=== PATIENT | female | born 1955 | race Hispanic/Latino ===

== ENCOUNTER 2022-02-12 14:32 | Outpatient (CLI) | payer OTHER | END 2022-02-12 14:33 | disposition home or self-care (01) | LOC: BICULT 14:32 | PROVIDERS: ATTEND Nurse Practitioner Family | DX: N64.89 Other specified disorders of breast (principal) | CPT/HCPCS: 76642; 77065; G0279 ==

== ENCOUNTER 2022-05-18 14:43 | Outpatient (CLI) | payer OTHER ==
[2022-05-18 16:06] LABS: #Eosinphils 0.2 10x3/uL (0.0-0.5); #Monocytes 0.5 10x3/uL (0.0-1.1); #Neutrophils 6.1 10x3/uL (1.5-8.4); %Basophils 0.1 % (0.0-2.0); %Eosinophils 2.5 % (0.0-6.0); %Monocytes 5.8 % (0.0-10.0); %Neutrophils 66.3 % (40.0-75.0); Hemoglobin 12.1 g/dL (12.0-15.5); Mean Corpuscular HGB CONC 31.9 g/dL (32.0-36.0); Mean Corpuscular Hemoglobin 30.9 pg (27.0-33.0); Mean Corpuscular Volume 96.9 fl (81.6-98.3); Mean Platelet Volume 10.7 fl (7.4-10.4); Platelet Count 270 10x3/uL (150-450); RBC Distribution Width 13.9 % (11.5-14.5); Red Blood Cell (RBC) Count 3.91 10x6/uL (3.90-5.03); White Blood Cell (WBC) Count 9.2 10x3/uL (3.5-10.5)
[2022-05-18 16:32] LABS: ALT (SGPT) 11 U/L (8-55); AST (SGOT) 12 U/L (5-34); Albumin 3.6 g/dL (3.4-4.8); Alkaline Phosphatase 109 U/L (40-110); Anion Gap 10 mmol/L (10-20); BUN (Urea Nitrogen) 23 mg/dL (9.8-20.1); Bilirubin, Direct 0.2 mg/dL (0.1-0.3); Bilirubin, Total 0.4 mg/dL (0.2-1.2); Calc. Creatinine Clearance 0 mL/min (70-130); Carbon Dioxide 28 mmol/L (23-31); Chloride 107 mmol/L (98-107); Estimated GFR 91; Globulin 3.2 g/dL (2.4-3.5); Glucose 122 mg/dL (80-115); Potassium 4.2 mmol/L (3.5-5.1); Protein, Total 6.8 g/dL (5.8-8.1); Sodium 141 mmol/L (136-145)
== END 2022-05-18 14:44 | disposition home or self-care (01) ==
LOC: LABBT 14:43
PROVIDERS: ATTEND Surgery
DX: Z01.818 Encounter for other preprocedural examination (principal); K80.20 Calculus of gallbladder without cholecystitis without obstruction
CPT/HCPCS: 80053; 80076; 85025; 93005; 93010

== ENCOUNTER 2022-05-21 08:32 | Day surgery (SDC) | payer OTHER ==
[2022-05-18 14:11] VITALS: BMI 38.2
[2022-05-21 09:59] LABS: SARS-CoV-2 NAA Rapid Test Not Detected (NotDetected)
[2022-05-21] MEDS ORDERED: Sodium Chloride 0.9% 100 ML ONE (10:06)
[2022-05-21] MEDS ORDERED: cefOXitin 2 GM VIAL ONE (10:06)
[2022-05-21] MEDS ORDERED: Bupivacaine/Epinephrine 0.25% 30 ML VIAL ONE (10:45)
[2022-05-21] MEDS ORDERED: fentaNYL PF 100 MCG/2 ML SYRINGE ONE (10:54)
[2022-05-21] MEDS ORDERED: Glycopyrrolate 0.2 MG/ML 5 ML SYRINGE ONE (11:06)
[2022-05-21] MEDS ORDERED: PROPOFOL 200 MG/20 ML VIAL ONE (11:06)
[2022-05-21] MEDS ORDERED: Ondansetron PF 4 MG/2 ML Vial ONE (11:06)
[2022-05-21] MEDS ORDERED: NEOSTIGMINE 3 MG/3 ML SYR 3 MG/3 ML SYRINGE ONE (11:06)
[2022-05-21] MEDS ORDERED: Dexamethasone 20 MG/5 ML VIAL ONE (11:06)
[2022-05-21] MEDS ORDERED: Rocuronium Bromide 10 MG/ML (10ML VIAL) ONE (11:06)
[2022-05-21] MEDS ORDERED: FENTANYL 50 MCG/ML 1 ML VIAL ONE ×2 (12:56→13:10)
[2022-05-21] MEDS ORDERED: HYDROmorphone 0.5 MG/0.5 ML SYRINGE ONE (13:48)
[2022-05-21] MEDS ORDERED: Acetaminophen/Codeine 30-300mg Tablet ONE ×2 (14:55→16:26)
== END 2022-05-21 16:45 | disposition home or self-care (01) ==
LOC: SDC 08:32
PROVIDERS: ATTEND Surgery
PROC: 0FT44ZZ Resection of Gallbladder, Percutaneous Endoscopic Approach (ICD-10-PCS; principal; 2022-05-21)
DX: K80.12 Calculus of gallbladder with acute and chronic cholecystitis without obstruction (principal); I11.9 Hypertensive heart disease without heart failure; E11.9 Type 2 diabetes mellitus without complications; E78.00 Pure hypercholesterolemia, unspecified; M19.90 Unspecified osteoarthritis, unspecified site; F17.210 Nicotine dependence, cigarettes, uncomplicated; E66.01 Morbid (severe) obesity due to excess calories; Z68.38 Body mass index [BMI] 38.0-38.9, adult; Z79.84 Long term (current) use of oral hypoglycemic drugs; Z79.899 Other long term (current) drug therapy; Z88.5 Allergy status to narcotic agent; Z20.822 Contact with and (suspected) exposure to COVID-19
CPT/HCPCS: 47562; 87070; 87075; 87205; J3010; U0002; 87077; 88304; C1889; J0694; J1100; J1170; J2405; J2704; J3490

== ENCOUNTER 2022-05-31 11:58 | Inpatient (IN) | payer OTHER ==
[2022-05-31] MEDS ORDERED: Ondansetron PF 4 MG/2 ML Vial ONE (12:40)
[2022-05-31 13:26] LABS: Hemoglobin 12.1 g/dL (12.0-16.0); Mean Corpuscular HGB CONC 32.1 g/dL (32.0-36.0); Mean Corpuscular Hemoglobin 31.1 pg (27.0-31.0); Mean Corpuscular Volume 96.9 fl (78.0-98.0); Mean Platelet Volume 8.8 fL (7.4-10.4); Platelet Count 282 10x3/uL (130-400); Red Blood Cell (RBC) Count 3.89 mill/uL (4.20-5.40); White Blood Cell (WBC) Count 20.2 10x3/uL (4.8-10.8)
[2022-05-31 13:41] LABS: ALT (SGPT) 209 U/L (8-55); AST (SGOT) 255 U/L (5-34); Alkaline Phosphatase 157 U/L (40-110); Anion Gap 15 mmol/L (10-20); BUN (Urea Nitrogen) 15 mg/dL (9.8-20.1); Bilirubin, Total 1.5 mg/dL (0.2-1.2); Calc. Creatinine Clearance 0 mL/min (70-130); Calcium 8.9 mg/dL (7.8-10.44); Carbon Dioxide 27 mmol/L (23-31); Chloride 96 mmol/L (98-107); Estimated GFR 81; Globulin 4.5 g/dL (2.4-3.5); Glucose 140 mg/dL (80-115); Lipase 9 U/L (8-78); Potassium 3.5 mmol/L (3.5-5.1); Protein, Total 7.5 g/dL (5.8-8.1); Sodium 134 mmol/L (136-145)
[2022-05-31 13:44] LABS: Band 13 % (5-11); Hypochromia SLIGHT = 6-15 cells (100X) (0-5/hpf); Lymphocytes 4 % (21-51); MDiff Complete? YES; Monocytes 2 % (0-10); Neutrophil 81 % (42-75); Platelet Morphology Comment Appears Adequate
[2022-05-31] MEDS ORDERED: Morphine 4 MG/ML VIAL ONE (14:05)
[2022-05-31] MEDS ORDERED: Piperacillin/Tazobactam 4.5 GM VIAL ONE (14:06)
[2022-05-31] MEDS ORDERED: VANCOMYCIN 2 GRAM/400 ML BAG 2 GM in Premix Bag 1 BAG IVPB SCH (14:30)
[2022-05-31] MEDS ORDERED: Iopamidol-370 76% 500 ML 1 ML ONE (15:09)
[2022-05-31] MEDS ORDERED: Dextrose 50% Abboject 50 ML SYRINGE SLOW IVP PRN (15:23)
[2022-05-31] MEDS ORDERED: Mag-Al 1200 mg/1200 mg/30 ML UDCUP PO PRN (15:23)
[2022-05-31] MEDS ORDERED: Calcium Carbonate 500 MG ChewTAB PO PRN (15:23)
[2022-05-31] MEDS ORDERED: Dextrose 5% in Water 1,000 ML IV PRN (15:23)
[2022-05-31] MEDS ORDERED: hydrALAZINE 20 MG/ML VIAL SLOW IVP PRN (15:23)
[2022-05-31] MEDS ORDERED: Promethazine HCl 25 MG/ML VIAL IM PRN (15:23)
[2022-05-31] MEDS ORDERED: Morphine 4 MG/ML VIAL SLOW IVP PRN (15:29)
[2022-05-31] MEDS ORDERED: Ondansetron ODT 4 MG TAB PO PRN (16:43)
[2022-05-31] MEDS: Sodium Chloride 0.9% 1,000 ML IV SCH (16:44)
[2022-05-31 16:52] LABS: Lactic Acid 1.5 mmol/L (0.5-2.2)
[2022-05-31] MEDS: Morphine 4 MG/ML VIAL SLOW IVP PRN (16:52)
[2022-05-31] MEDS ORDERED: Albuterol Sulfate 2.5 mg/3 ml Neb NEB PRN (17:02)
[2022-05-31] MEDS: Piperacillin/Tazobactam 3.375 GM in Sodium Chloride 0.9% 100 ML IVPB SCH (17:16)
[2022-05-31 17:24] VITALS: BMI 37.5
[2022-05-31] MEDS ORDERED: Acetaminophen 500 MG TAB PO PRN (17:39)
[2022-05-31] MEDS ORDERED: HumaLOG 300 UNITS/3 ML VIAL SC PRN ×2 (17:42)
[2022-05-31] MEDS ORDERED: Polyethylene Glycol 3350 17 GM Packet PO PRN (17:43)
[2022-05-31] MEDS: Famotidine 20 MG TAB PO SCH (20:56)
[2022-05-31] MEDS: Gabapentin 300 MG CAP PO SCH (20:56)
[2022-05-31] MEDS: Fluticasone Propionate Nasal Spray 16 gm Bottle NASAL SCH (20:58)
[2022-05-31] MEDS: Famotidine/PF 20 mg/2ml Vial SLOW IVP SCH (23:53)
[2022-06-01] MEDS: Sodium Chloride 0.9% 1,000 ML IV SCH ×4 (01:57→23:14)
[2022-06-01] MEDS: Ondansetron PF 4 MG/2 ML Vial IVP PRN (02:06)
[2022-06-01] MEDS: Piperacillin/Tazobactam 3.375 GM in Sodium Chloride 0.9% 100 ML IVPB SCH ×3 (02:06→17:33)
[2022-06-01] MEDS: Morphine 4 MG/ML VIAL SLOW IVP PRN (02:25)
[2022-06-01 06:27] LABS: #Eosinphils 0.1 thou/uL (0.0-0.7); #Lymphocytes 1.5 thou/uL (1.20-3.40); #Monocytes 0.4 thou/uL (0.11-0.59); #Neutrophils 14.2 thou/uL (1.40-6.50); %Eosinophils 0.4 % (0.0-10.0); %Monocytes 2.5 % (0.0-10.0); %Neutrophils 88.2 % (42.0-75.0); Hemoglobin 11.8 g/dL (12.0-16.0); Mean Corpuscular HGB CONC 30.6 g/dL (32.0-36.0); Mean Corpuscular Hemoglobin 30.7 pg (27.0-31.0); Mean Platelet Volume 8.5 fL (7.4-10.4); Platelet Count 316 10x3/uL (130-400); RBC Distribution Width 13.3 % (11.5-14.5); Red Blood Cell (RBC) Count 3.84 mill/uL (4.20-5.40); White Blood Cell (WBC) Count 16.1 10x3/uL (4.8-10.8)
[2022-06-01 07:02] LABS: ALT (SGPT) 182 U/L (8-55); AST (SGOT) 198 U/L (5-34); Albumin 2.7 g/dL (3.4-4.8); Alkaline Phosphatase 155 U/L (40-110); Anion Gap 14 mmol/L (10-20); BUN (Urea Nitrogen) 10 mg/dL (9.8-20.1); Bilirubin, Total 1.8 mg/dL (0.2-1.2); Calc. Creatinine Clearance 120 mL/min (70-130); Calcium 8.4 mg/dL (7.8-10.44); Carbon Dioxide 21 mmol/L (23-31); Chloride 105 mmol/L (98-107); Estimated GFR 87; Globulin 4.2 g/dL (2.4-3.5); Glucose 103 mg/dL (80-115); Lipase 5 U/L (8-78); Potassium 4.2 mmol/L (3.5-5.1); Protein, Total 6.9 g/dL (5.8-8.1); Sodium 136 mmol/L (136-145)
[2022-06-01 08:10] LABS: INR-International Normal Ratio 1.2; Prothrombin Time 15.8 sec (12.0-14.7)
[2022-06-01 08:12] LABS: PTT 39.3 sec (22.9-36.1)
[2022-06-01] MEDS ORDERED: metFORMIN 500 MG TAB PO SCH (08:15)
[2022-06-01] MEDS ORDERED: Cepastat Lozenges 1 LOZ PO PRN (08:42)
[2022-06-01] MEDS: Fluticasone Propionate Nasal Spray 16 gm Bottle NASAL SCH ×2 (09:09→21:00)
[2022-06-01] MEDS ORDERED: Lidocaine 1% PF 5 ML VIAL ONE (09:10)
[2022-06-01] MEDS: Losartan 25 MG TAB PO SCH (09:10)
[2022-06-01] MEDS: Famotidine 20 MG TAB PO SCH ×2 (09:10→21:02)
[2022-06-01] MEDS: Famotidine/PF 20 mg/2ml Vial SLOW IVP SCH ×2 (09:10→22:13)
[2022-06-01] MEDS ORDERED: Sodium Bicarbonate 2.5 MEQ/5 ML VIAL ONE (09:10)
[2022-06-01] MEDS ORDERED: Midazolam HCl 2 mg/2 ml Vial ONE (10:33)
[2022-06-01] MEDS ORDERED: FENTANYL 50 MCG/ML 1 ML VIAL ONE (10:33)
[2022-06-01] MEDS: HYDROcodone/Acetaminophen 5/325 mg Tablet PO PRN (12:24)
[2022-06-01 13:46] LABS: BF Color Brown; Body Fluid Source Abscess Fluid; Clarity Cloudy/Turbid (Clear); Tube # EDTA
[2022-06-01] MEDS: Acetaminophen 500 MG TAB PO SCH ×2 (13:51→21:04)
[2022-06-01] MEDS: Ibuprofen 200 MG TAB PO SCH ×2 (13:52→21:01)
[2022-06-01] MEDS: Gabapentin 300 MG CAP PO SCH (21:00)
[2022-06-02] MEDS: Piperacillin/Tazobactam 3.375 GM in Sodium Chloride 0.9% 100 ML IVPB SCH ×3 (02:21→17:06)
[2022-06-02] MEDS: Acetaminophen 500 MG TAB PO SCH (06:11)
[2022-06-02] MEDS: Ibuprofen 200 MG TAB PO SCH ×3 (06:12→23:27)
[2022-06-02 07:05] LABS: Hemoglobin A1c 5.9 % (4.0-6.0)
[2022-06-02 07:17] LABS: #Eosinphils 0.1 thou/uL (0.0-0.7); #Lymphocytes 1.1 thou/uL (1.20-3.40); #Monocytes 0.8 thou/uL (0.11-0.59); #Neutrophils 10.9 thou/uL (1.40-6.50); %Basophils 0.1 % (0.0-1.0); %Eosinophils 0.8 % (0.0-10.0); %Lymphocytes 8.3 % (21.0-51.0); %Monocytes 6.4 % (0.0-10.0); %Neutrophils 84.3 % (42.0-75.0); Hemoglobin 9.5 g/dL (12.0-16.0); Mean Corpuscular HGB CONC 31.1 g/dL (32.0-36.0); Mean Corpuscular Hemoglobin 31.1 pg (27.0-31.0); Mean Platelet Volume 8.3 fL (7.4-10.4); Platelet Count 244 10x3/uL (130-400); RBC Distribution Width 13.3 % (11.5-14.5); Red Blood Cell (RBC) Count 3.04 mill/uL (4.20-5.40); White Blood Cell (WBC) Count 12.9 10x3/uL (4.8-10.8)
[2022-06-02] MEDS: Famotidine/PF 20 mg/2ml Vial SLOW IVP SCH ×2 (07:38→21:17)
[2022-06-02 07:39] LABS: ALT (SGPT) 138 U/L (8-55); AST (SGOT) 121 U/L (5-34); Albumin 2.2 g/dL (3.4-4.8); Alkaline Phosphatase 115 U/L (40-110); Anion Gap 13 mmol/L (10-20); BUN (Urea Nitrogen) 15 mg/dL (9.8-20.1); Bilirubin, Total 1.2 mg/dL (0.2-1.2); Calc. Creatinine Clearance 112 mL/min (70-130); Calcium 7.9 mg/dL (7.8-10.44); Carbon Dioxide 21 mmol/L (23-31); Chloride 109 mmol/L (98-107); Estimated GFR 80; Globulin 3.5 g/dL (2.4-3.5); Glucose 110 mg/dL (80-115); Potassium 3.5 mmol/L (3.5-5.1); Protein, Total 5.7 g/dL (5.8-8.1); Sodium 139 mmol/L (136-145)
[2022-06-02] MEDS ORDERED: metFORMIN 500 MG TAB PO SCH (08:00)
[2022-06-02] MEDS ORDERED: Docusate 100 MG CAP PO PRN (08:38)
[2022-06-02] MEDS ORDERED: Polyethylene Glycol 3350 17 GM Packet PO SCH (08:45)
[2022-06-02] MEDS ORDERED: Docusate 100 MG CAP PO SCH (08:45)
[2022-06-02] MEDS ORDERED: Acetaminophen 500 MG TAB PO PRN (09:12)
[2022-06-02] MEDS: Enoxaparin Sodium 40 MG/0.4 ML SYRINGE SC SCH (09:16)
[2022-06-02] MEDS: Fluticasone Propionate Nasal Spray 16 gm Bottle NASAL SCH ×2 (09:17→20:27)
[2022-06-02] MEDS: Docusate 100 MG CAP PO SCH ×2 (09:17→20:27)
[2022-06-02] MEDS: Famotidine 20 MG TAB PO SCH ×2 (09:17→20:27)
[2022-06-02] MEDS: Polyethylene Glycol 3350 17 GM Packet PO SCH (09:39)
[2022-06-02] MEDS: Sodium Chloride 0.9% 1,000 ML IV SCH ×4 (09:39→20:47)
[2022-06-02] MEDS: HYDROcodone/Acetaminophen 5/325 mg Tablet PO PRN ×2 (13:07→20:38)
[2022-06-02] MEDS: Gabapentin 300 MG CAP PO SCH (20:26)
[2022-06-03] MEDS: Piperacillin/Tazobactam 3.375 GM in Sodium Chloride 0.9% 100 ML IVPB SCH ×3 (02:08→17:43)
[2022-06-03] MEDS: Ibuprofen 200 MG TAB PO SCH ×3 (05:13→22:17)
[2022-06-03] MEDS: Morphine 4 MG/ML VIAL SLOW IVP PRN (05:14)
[2022-06-03] MEDS: Sodium Chloride 0.9% 1,000 ML IV SCH (05:15)
[2022-06-03 08:51] LABS: #Eosinphils 0.1 thou/uL (0.0-0.7); #Lymphocytes 1.3 thou/uL (1.20-3.40); #Monocytes 0.6 thou/uL (0.11-0.59); #Neutrophils 8.6 thou/uL (1.40-6.50); %Basophils 0.2 % (0.0-1.0); %Eosinophils 0.9 % (0.0-10.0); %Lymphocytes 12.5 % (21.0-51.0); %Monocytes 5.2 % (0.0-10.0); %Neutrophils 81.2 % (42.0-75.0); Mean Corpuscular HGB CONC 31.8 g/dL (32.0-36.0); Mean Corpuscular Hemoglobin 31.4 pg (27.0-31.0); Mean Corpuscular Volume 98.9 fl (78.0-98.0); Mean Platelet Volume 8.5 fL (7.4-10.4); Platelet Count 300 10x3/uL (130-400); RBC Distribution Width 13.5 % (11.5-14.5); Red Blood Cell (RBC) Count 3.18 mill/uL (4.20-5.40); White Blood Cell (WBC) Count 10.6 10x3/uL (4.8-10.8)
[2022-06-03] MEDS: Famotidine 20 MG TAB PO SCH ×2 (09:01→20:07)
[2022-06-03] MEDS: Docusate 100 MG CAP PO SCH ×2 (09:01→20:07)
[2022-06-03] MEDS: Fluticasone Propionate Nasal Spray 16 gm Bottle NASAL SCH ×2 (09:01→20:09)
[2022-06-03] MEDS: Enoxaparin Sodium 40 MG/0.4 ML SYRINGE SC SCH (09:03)
[2022-06-03] MEDS: Famotidine/PF 20 mg/2ml Vial SLOW IVP SCH ×2 (09:03→19:33)
[2022-06-03] MEDS: Polyethylene Glycol 3350 17 GM Packet PO SCH (09:03)
[2022-06-03 09:11] LABS: ALT (SGPT) 114 U/L (8-55); AST (SGOT) 73 U/L (5-34); Albumin 2.3 g/dL (3.4-4.8); Alkaline Phosphatase 126 U/L (40-110); Anion Gap 12 mmol/L (10-20); BUN (Urea Nitrogen) 14 mg/dL (9.8-20.1); Calc. Creatinine Clearance 132 mL/min (70-130); Calcium 8.1 mg/dL (7.8-10.44); Carbon Dioxide 21 mmol/L (23-31); Chloride 109 mmol/L (98-107); Estimated GFR 95; Globulin 3.8 g/dL (2.4-3.5); Glucose 116 mg/dL (80-115); Potassium 3.4 mmol/L (3.5-5.1); Protein, Total 6.1 g/dL (5.8-8.1); Sodium 139 mmol/L (136-145)
[2022-06-03] MEDS: HYDROcodone/Acetaminophen 5/325 mg Tablet PO PRN ×2 (13:38→18:37)
[2022-06-03] MEDS: Gabapentin 300 MG CAP PO SCH (20:07)
[2022-06-03] MEDS: Atorvastatin Calcium 20 MG TAB PO SCH (20:09)
[2022-06-03] MEDS: Ondansetron PF 4 MG/2 ML Vial IVP PRN (20:13)
[2022-06-04] MEDS: Piperacillin/Tazobactam 3.375 GM in Sodium Chloride 0.9% 100 ML IVPB SCH ×2 (01:07→09:43)
[2022-06-04] MEDS: Ibuprofen 200 MG TAB PO SCH ×3 (05:20→20:54)
[2022-06-04] MEDS: Famotidine/PF 20 mg/2ml Vial SLOW IVP SCH ×2 (09:39→20:54)
[2022-06-04] MEDS: Fluticasone Propionate Nasal Spray 16 gm Bottle NASAL SCH ×2 (09:42→20:57)
[2022-06-04] MEDS: Enoxaparin Sodium 40 MG/0.4 ML SYRINGE SC SCH (09:42)
[2022-06-04] MEDS: Famotidine 20 MG TAB PO SCH ×2 (09:42→20:53)
[2022-06-04] MEDS: Docusate 100 MG CAP PO SCH ×2 (09:42→20:53)
[2022-06-04] MEDS: Polyethylene Glycol 3350 17 GM Packet PO SCH (09:43)
[2022-06-04] MEDS: Losartan 25 MG TAB PO SCH (09:46)
[2022-06-04] MEDS ORDERED: Potassium Chloride 20 MEQ TAB PO SCH (10:15)
[2022-06-04] MEDS: Morphine 4 MG/ML VIAL SLOW IVP PRN (14:24)
[2022-06-04] MEDS: Gabapentin 300 MG CAP PO SCH (20:52)
[2022-06-04] MEDS: Atorvastatin Calcium 20 MG TAB PO SCH (20:53)
[2022-06-04] MEDS: Sulfameth/Trimethoprim DS 800-160mg TAB PO SCH (20:53)
[2022-06-04] MEDS: HYDROcodone/Acetaminophen 5/325 mg Tablet PO PRN (20:53)
[2022-06-05] MEDS: Ibuprofen 200 MG TAB PO SCH ×3 (05:30→21:59)
[2022-06-05] MEDS: Famotidine/PF 20 mg/2ml Vial SLOW IVP SCH ×2 (09:27→22:04)
[2022-06-05] MEDS: Enoxaparin Sodium 40 MG/0.4 ML SYRINGE SC SCH (09:37)
[2022-06-05] MEDS: Docusate 100 MG CAP PO SCH ×2 (09:37→21:52)
[2022-06-05] MEDS: Famotidine 20 MG TAB PO SCH ×2 (09:38→21:52)
[2022-06-05] MEDS: Losartan 25 MG TAB PO SCH (09:38)
[2022-06-05] MEDS: Sulfameth/Trimethoprim DS 800-160mg TAB PO SCH ×2 (09:38→21:52)
[2022-06-05] MEDS: Polyethylene Glycol 3350 17 GM Packet PO SCH (09:49)
[2022-06-05] MEDS: Fluticasone Propionate Nasal Spray 16 gm Bottle NASAL SCH ×2 (13:55→21:52)
[2022-06-05] MEDS: HYDROcodone/Acetaminophen 5/325 mg Tablet PO PRN (17:59)
[2022-06-05] MEDS: Gabapentin 300 MG CAP PO SCH (21:52)
[2022-06-05] MEDS: Atorvastatin Calcium 20 MG TAB PO SCH (21:52)
[2022-06-05] MEDS: Ondansetron PF 4 MG/2 ML Vial IVP PRN (21:59)
[2022-06-06] MEDS: Ibuprofen 200 MG TAB PO SCH ×2 (06:02→13:04)
[2022-06-06] MEDS: Docusate 100 MG CAP PO SCH (10:43)
[2022-06-06] MEDS: Famotidine 20 MG TAB PO SCH (10:44)
[2022-06-06] MEDS: Enoxaparin Sodium 40 MG/0.4 ML SYRINGE SC SCH (10:44)
[2022-06-06] MEDS: Famotidine/PF 20 mg/2ml Vial SLOW IVP SCH (10:44)
[2022-06-06] MEDS: Sulfameth/Trimethoprim DS 800-160mg TAB PO SCH (10:44)
[2022-06-06] MEDS: Losartan 25 MG TAB PO SCH (10:44)
[2022-06-06] MEDS: Polyethylene Glycol 3350 17 GM Packet PO SCH (10:53)
[2022-06-06] MEDS: HYDROcodone/Acetaminophen 5/325 mg Tablet PO PRN (13:01)
[2022-06-06] MEDS: Fluticasone Propionate Nasal Spray 16 gm Bottle NASAL SCH (15:09)
[2022-06-06 17:22] VITALS: BP 150/82; TEMP 98
== END 2022-06-06 17:20 | disposition home or self-care (01) | DRG 862 ==
LOC: ERS 11:58 → MSONC 15:26 → SJJU 06-04 17:04
PROVIDERS: ADMIT Surgery; ATTEND Surgery
PROC: 0W9G3ZZ Drainage of Peritoneal Cavity, Percutaneous Approach (ICD-10-PCS; principal; 2022-06-01)
DX: T81.43XA Infection following a procedure, organ and space surgical site, initial encounter (principal); A41.51 Sepsis due to Escherichia coli [E. coli]; R65.21 Severe sepsis with septic shock; K65.1 Peritoneal abscess; K81.0 Acute cholecystitis; B37.0 Candidal stomatitis; I10 Essential (primary) hypertension; E11.40 Type 2 diabetes mellitus with diabetic neuropathy, unspecified; E78.00 Pure hypercholesterolemia, unspecified; Y83.8 Other surgical procedures as the cause of abnormal reaction of the patient, or of later complication, without mention of misadventure at the time of the procedure; M19.90 Unspecified osteoarthritis, unspecified site; E66.01 Morbid (severe) obesity due to excess calories; Z90.49 Acquired absence of other specified parts of digestive tract; Z98.1 Arthrodesis status; Z87.891 Personal history of nicotine dependence; Z79.51 Long term (current) use of inhaled steroids; Z79.899 Other long term (current) drug therapy; Z95.1 Presence of aortocoronary bypass graft; Z68.37 Body mass index [BMI] 37.0-37.9, adult
CPT/HCPCS: 36415; 36416; 49020; 71045; 74177; 77002; 78226; 80053; 83036; 83605; 83690; 84484; 85025; 85060; 85610; 85730; 87040; 87070; 87077; 87149; 87186; 87205; 89051; 93005; 94640; 96361; 96365; 96375; A9537; C1729; J1650; J2250; J2270; J2405; J2543; J3010; J3370; J3490; J7050; J7611; Q9967; U0003; U0005

== ENCOUNTER 2022-08-31 19:30 | Outpatient (CLI) | payer MEDICARE, OTHER | END 2022-08-31 19:31 | disposition home or self-care (01) | LOC: SLEEPLAB 19:30 | PROVIDERS: ATTEND Nurse Practitioner Family | DX: G47.33 Obstructive sleep apnea (adult) (pediatric) (principal) | CPT/HCPCS: 95810 ==